=== PATIENT | female | born 1945 | race Caucasian/White ===

== ENCOUNTER → 2017-10-28 | Outpatient (CLI) | payer OTHER ==
[~2017-10-28] MED LIST: CALCIUM; CELEXA 10 MG TA10 M1; OCUVITE TABLET1 EAC1
== END ==
LOC: NUC 07:05
DX: Z13.820 Encounter for screening for osteoporosis (principal); N91.2 Amenorrhea, unspecified; Z78.0 Asymptomatic menopausal state

== ENCOUNTER → 2017-12-16 | Outpatient (CLI) | payer OTHER ==
[~2017-12-16] VITALS: Ht 162.6 cm; Wt 82.6 kg
[~2017-12-16] MED LIST changes: -CALCIUM; +CALCIUM 600 +1 EAC1 PO; +CELEXA40 MG PO; +GLUCOPHAGE XR500 MG PO; -OCUVITE TABLET1 EAC1; +OCUVITE TABLET1 EAC1 PO
--- NOTE | ~2017-12-16 | P ---
[facility] [place] [address] PROCEDURE REPORT Name: NATALIE LAZCANO Room #: REG [facility].#: [id number] Admission: 12/16/17 Attend Phys: Alexander Still Discharge: Date of : 47 Report #: [id number] THIS REPORT FOR: //name// CC: Alexander Byers MD DATE OF SERVICE: 12/16/2017 PROCEDURE PERFORMED: Colonoscopy with biopsies. HISTORY OF PRESENT ILLNESS: The patient is a 72-year-old female with a previous history of polyps, here for routine followup. Last colonoscopy approximately 9 years ago. She denies any symptoms. No family history of colon cancer. DESCRIPTION OF PROCEDURE: The risks and benefits of the procedure were explained to the patient, those risks including but not limited to bleeding, perforation, the risk of sedation. She understood these risks and gave informed consent. Sedation was given using propofol per Anesthesia. Next, a digital rectal exam was initially performed, which was normal. Next, using standard Olympus colonoscope, the scope was placed in the patient's anus and advanced under direct vision to the cecum. The overall prep was excellent. The cecum and ileocecal valve were normal in appearance. The ascending, transverse and descending colon were normal. In the sigmoid colon, a 4-mm sessile polyp was noted. This was removed with cold forceps, otherwise normal. The rectal mucosa was normal. On retroflexion, no abnormalities were noted. The scope was then withdrawn and the procedure terminated. The patient tolerated the procedure well. IMPRESSION: 1. Small colonic polyp. 2. Otherwise, normal colonoscopy. RECOMMENDATIONS: 1. Await biopsy results. 2. If polyp is hyperplastic, repeat in 10 years; if adenomatous polyp, repeat in 5 years. Thank you for allowing me to participate in her care. By: [id number] Alexander Edmond MD /nt
--- NOTE | ~2017-12-16 | PATH ---
[facility] [address] [place] [address] PATHOLOGY RPT PROCEDURE Name: NATALIE MESSINA SAMMY Room #: REG [facility].#: [id number] Admission: 12/16/17 Date of : 47 Discharge: Report #: [id number] Path Case #: [id number] [facility] Accession Number: [id number] . 01 Material submitted: . POLYP AT SIGMOID COLON . 01 Clinical history: . Pre-Op DX: Hx polyps Post-OP DX: Polyp . 02 Diagnosis: Polyp, at sigmoid colon, endoscopic biopsy: - Acutely inflamed hyperplastic polyp. - Negative for dysplasia. . (IUV:mml; 12/17/17) QL/12/17/2017 . 02 Electronically signed: . Fallon Valadez MD, Pathologist NPI- [id number] . 01 Gross description: . Received in formalin labeled "Natalie Messina, polyp at sigmoid colon," are 3 segments of floyd soft tissue measuring 0.8 x 0.4 x 0.3 cm in aggregate dimensions and ranging from 0.1 to 0.4 cm in maximum dimension. The specimen is submitted entirely in cassette A1. (TSD; 12/16/2017) TOB/TOB . 02 Pathologist provided ICD-10: K63.5 . 02 CPT . 472119 Performed at: [address], [place] [id number] MD Bowen Sheikh MD Phone: [phone] Performed at: [address] [id number] MD Fallon Valadez MD Phone: [phone]
== END | disposition home or self-care (01) ==
LOC: GI 07:52
DX: Z12.11 Encounter for screening for malignant neoplasm of colon (principal); K63.5 Polyp of colon; E11.9 Type 2 diabetes mellitus without complications; F32.9 Major depressive disorder, single episode, unspecified; F41.9 Anxiety disorder, unspecified; Z98.890 Other specified postprocedural states; Z79.899 Other long term (current) drug therapy; Z88.0 Allergy status to penicillin; Z86.010 Personal history of colon polyps
CPT/HCPCS: 62110; 62900

== ENCOUNTER → 2019-08-05 | Outpatient (CLI) | payer OTHER | LOC: RAD 15:26 | DX: J98.4 Other disorders of lung (principal) ==

== ENCOUNTER → 2020-03-06 | Outpatient (CLI) | payer OTHER | LOC: NUC 10:12 | PROVIDERS: ATTEND Neuromusculoskeletal Medicine & OMM | DX: M85.88 Other specified disorders of bone density and structure, other site (principal); M81.0 Age-related osteoporosis without current pathological fracture ==

== ENCOUNTER → 2020-05-16 | Outpatient (CLI) | payer OTHER | LOC: LAB 07:36 | PROVIDERS: ATTEND Neuromusculoskeletal Medicine & OMM | DX: Z20.828 Contact with and (suspected) exposure to other viral communicable diseases (principal) ==

== ENCOUNTER → 2021-02-08 | Outpatient (CLI) | payer OTHER | LOC: ULTRA 08:03 | PROVIDERS: ATTEND Neuromusculoskeletal Medicine & OMM | DX: R14.0 Abdominal distension (gaseous) (principal); R19.4 Change in bowel habit; R10.9 Unspecified abdominal pain ==